=== PATIENT | male | born 1975 | race Caucasian/White ===

== ENCOUNTER 2018-11-25 11:53 | Emergency (ER) | payer OTHER ==
[~2018-11-25] VITALS: Ht 170.2 cm; Wt 109.1 kg
[~2018-11-25 11:53] MED LIST: ALIG4CAP; ATOR1TAB21; CELE100C; CYCL10TA; IBUP200C25 PO; NEUR300C PO; OMEP40CA2; RANI150T; SILD50TA; ULTR37.54 PO; VITA-122; [UNRECOGNIZED DRUG - CODE] AD; focus pain cream TOP
[2018-11-25 11:54] VITALS: BP 153/71
[2018-11-25] MEDS ORDERED: TIZA4TAB4 (12:08)
[2018-11-25] MEDS ORDERED: NAPR-885 (12:08)
[2018-11-25] MEDS ORDERED: BACL10TA8 PO (12:56)
[2018-11-25] MEDS ORDERED: CYCL5TAB PO (12:56)
== END 2018-11-25 13:07 | disposition home or self-care (01) ==
LOC: M ED 11:53
DX: M54.5 Low back pain (principal); G89.29 Other chronic pain; K57.90 Diverticulosis of intestine, part unspecified, without perforation or abscess without bleeding; Z91.040 Latex allergy status; Z79.899 Other long term (current) drug therapy; Z79.1 Long term (current) use of non-steroidal anti-inflammatories (NSAID)

== ENCOUNTER → 2021-03-16 | Outpatient (REF) | payer OTHER ==
[~2021-03-16] MED LIST changes: +BACL10TA8 PO; +CYCL-707; -CYCL10TA; +CYCL5TAB PO; +NAPR-885; -OMEP40CA2; +OMEP40CA4; +TIZA4TAB4
== END ==
LOC: M LAB REF 15:03
PROVIDERS: ATTEND Otolaryngology
DX: J31.2 Chronic pharyngitis (principal)

== ENCOUNTER → 2022-07-22 | Outpatient (CLI) | payer OTHER ==
[~2022-07-22] MED LIST changes: +TIZA10TA; -TIZA4TAB4; +ULTR1TAB PO; -ULTR37.54 PO
== END ==
LOC: M LABSMTC 09:54
PROVIDERS: ATTEND Anesthesiology
DX: Z01.812 Encounter for preprocedural laboratory examination (principal); Z20.822 Contact with and (suspected) exposure to COVID-19

== ENCOUNTER → 2023-05-02 | Outpatient (CLI) | payer OTHER ==
[~2023-05-02] VITALS: Ht 165.1 cm; Wt 113.6 kg
[~2023-05-02] MED LIST changes: +LIDOCAINE 2% 100MG/5ML SDV (FOR ANES.) ONE; +propofoL 200 MG/20 ML VIAL ONE
[2023-05-02 09:00] VITALS: TEMP 97.7
[2023-05-02 10:40] VITALS: BP 111/62; O2SAT 97
== END ==
LOC: M RADPRO 08:34
PROVIDERS: ATTEND Internal Medicine
DX: R42 Dizziness and giddiness (principal)